=== PATIENT | female | born 1995 | race Caucasian/White ===

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

== ENCOUNTER 2019-06-22 05:20 | Inpatient (IN) ==
[2019-06-22] MEDS ORDERED: REGLAN PO ONE (05:24)
[2019-06-22] MEDS ORDERED: PEPCID PO ONE (05:24)
[2019-06-22] MEDS ORDERED: CLINDAMYCIN 900 MG/D5W 900 MG/50 ML IVPB IV ONE (05:39)
[2019-06-22 05:53] LABS: URINE SOURCE VOIDED
--- NOTE | 2019-06-22 05:58 | HISTORY AND PHYSICAL ---
HISTORY OF PRESENT ILLNESS: Ms. Gottlieb is a 24-year-old G3, P2, 0-0-2, who presents to Labor and Delivery for scheduled primary delivery at 38 weeks and 1 day secondary to gestational diabetes type 2 and macrosomia. The patient presents with good movement. Denies contractions, leakage of fluid or vaginal bleeding. PAST MEDICAL HISTORY: Includes seizure disorder, depression, anxiety, chronic urinary tract infection, and carrier of alpha-1 antitrypsin deficiency. CURRENT MEDICATIONS: 1. vitamins. 2. Keppra 500 mg b.i.d. 3. Effexor. 4. Macrobid. 5. Glyburide 1.25 mg at bedtime. INSURANCE VERIFIER HISTORY: Patient diagnosed with Chlamydia in current treated on 06/09/2019. Menarche at age 13. OB HISTORY: G3, P2, 0-0-2. Two prior full-term vaginal delivery. Both pregnancies baby weighed over 9 pounds. Current : Baby measuring 9 pounds 5 ounces at 35 weeks. Estimated weight is greater than 4500 g. FAMILY HISTORY: The patient admits to a history of congenital heart defects. SURGICAL HISTORY: None. ALLERGIES: Penicillin anaphylaxis, latex swelling. SOCIAL HISTORY: Denies tobacco, alcohol, or drug use. PHYSICAL EXAMINATION: VITAL SIGNS: Blood pressure 127/72, pulse rate 105, height 5 feet 9 inches, weight 314 pounds, and body mass index 46.3 kg/m2. GENERAL: No acute distress. Alert, awake, and oriented x3. CARDIOVASCULAR: Regular rate and rhythm. RESPIRATORY: Clear to auscultation bilaterally. ABDOMEN: Gravid. Nontender to palpation. Soft. EXTREMITIES: Negative calf tenderness. Electronic monitor by Doppler 140 beats per minute. ASSESSMENT: Ms. Gottlieb is a 24-year-old, G3, P2, 0-0-2 at 38 weeks and 1 day, who presents to Labor and Delivery for scheduled primary delivery secondary to poorly- controlled gestational diabetes and complicated by macrosomia. PLAN: 1. Admit to Labor and Delivery for a primary delivery. 2. Continue with monitoring assessment prior to procedure, and Doppler post spinal procedure. 3. IV antibiotics for prophylaxis. 4. Patient reports history of hemorrhage and blood transfusion with prior deliveries. The patient was typed and crossed for 2 units of packed red blood cells, and placed on hold. 5. Patient counseled on risk of bleeding, infection, injury to surrounding organs, not limited to bowel, bladder, ureter, or blood vessels. The patient also counseled on the risks to the fetus, not limited to shoulder dystocia potentially causing permanent nerve damage. The patient understands risks and agrees to procedure. 6. We will continue Effexor secondary to history of depression. The patient understands risk of depression. We will monitor closely. 7. Will continue Keppra p.o. b.i.d. for seizure prevention. 8. Pediatrics will be informed of patient's carrier status of alpha-1 antitrypsin deficiency and monitor appropriately. [facility] CENTERAlexia
[2019-06-22 06:00] LABS: BASO# 0.04 X1000 (0.0-0.2); BASO% 0.4 % (0.0-0.8); EOS# 0.12 X1000 (0.0-0.7); EOS% 1.1 % (0.0-10.0); HEMOGLOBIN 9.8 g/dL (12.0-16.0); IMM GRAN# 0.09 X1000 (0.0-0.04); IMM GRAN% 0.8 % (0.0-0.5); LYMPH# 2.35 X1000 (1.2-3.4); LYMPH% 20.8 % (20.5-51.1); MCH 25.6 PG (27-31); MCHC 31.6 g/dL (33-37); MCV 80.9 FL (81-99); MONO# 0.94 X1000 (0.11-0.59); MONO% 8.3 % (1.7-9.3); MPV 10.1 FL (7.4-10.4); NEUT# 7.74 X1000 (1.4-6.5); NEUT% 68.6 % (42.2-75.2); PLT 244 X1000 (130-400); RBC 3.83 XMIL (4.2-5.4); RDW 15.9 % (11.5-14.5); WBC 11.28 X1000 (4.8-10.8)
[2019-06-22] MEDS: LR 1,000 ML IV SCH ×2 (06:02→06:28)
[2019-06-22 06:06] LABS: BILIRUBIN URINE NEGATIVE (NEGATIVE); BLOOD URINE 1+ (NEGATIVE); CLARITY CLEAR (CLEAR); COLOR YELLOW; GLUCOSE URINE NEGATIVE (NEGATIVE); KETONE URINE 1+(Small) mg/dL (NEGATIVE); LEUKOCYTES URINE 2+ (NEGATIVE); NITRITE URINE POSITIVE (NEGATIVE); PROTEIN URINE 2+(100 mg/dL) mg/dL (NEGATIVE); SP GRAVITY URINE 1.015; UROBILINOGEN URINE 1 mg/dL
[2019-06-22] MEDS ORDERED: BICITRA PO ONE (06:18)
[2019-06-22 06:26] LABS: UR AMPHETAMINES QUAL NONE DETECTED (NONE DETECT); UR BARBITUATES QUAL NONE DETECTED (NONE DETECT); UR BENZODIAZEPIN QUAL NONE DETECTED (NONE DETECT); UR CANNABINOIDS QUAL NONE DETECTED (NONE DETECT); UR COCAINE QUAL NONE DETECTED (NONE DETECT); UR METHADONE QUAL NONE DETECTED (NONE DETECT); UR METHAMPHETAMINE QUAL NONE DETECTED (NONE DETECT); UR OPIATES QUAL NONE DETECTED (NONE DETECT); UR OXYCODONE QUAL NONE DETECTED (NONE DETECT); UR PCP QUAL NONE DETECTED (NONE DETECT); UR PROPOXYPHENE QUAL NONE DETECTED (NONE DETECT); UR TCA QUAL NONE DETECTED (NONE DETECT)
[2019-06-22] MEDS: GENTAMICIN 100 MG/NS 100 MG/100 ML IVPB IV SCH ×2 (06:40→06:41)
[2019-06-22] MEDS ORDERED: DURAMORPH ONE (06:58)
[2019-06-22] MEDS ORDERED: DECADRON ONE (06:59)
[2019-06-22] MEDS ORDERED: ZOFRAN ONE (06:59)
[2019-06-22] MEDS ORDERED: PITOCIN ONE ×3 (07:05→08:14)
[2019-06-22] MEDS ORDERED: FENTANYL ONE (07:05)
[2019-06-22] MEDS ORDERED: ROBINUL ONE (07:06)
[2019-06-22] MEDS ORDERED: METHERGINE ONE (07:20)
[2019-06-22] MEDS ORDERED: HEMABATE ONE (07:20)
[2019-06-22] MEDS ORDERED: SODIUM CHLORIDE 0.9% 10 ML ONE (08:02)
[2019-06-22] MEDS ORDERED: EPHEDRINE ONE (08:03)
[2019-06-22] MEDS ORDERED: CALCIUM CHLORIDE SYRINGE ONE ×2 (08:07→08:11)
[2019-06-22] MEDS ORDERED: SODIUM CHLORIDE 0.9% 20 ML ONE (08:12)
[2019-06-22] MEDS ORDERED: ZOFRAN IV PRN ×2 (09:00)
[2019-06-22] MEDS ORDERED: ZOFRAN ODT PO PRN (09:00)
[2019-06-22] MEDS ORDERED: NARCAN INJ PRN (09:00)
[2019-06-22] MEDS: BENADRYL IV PRN ×2 (09:42→21:34)
[2019-06-22] MEDS ORDERED: PHENERGAN IM PRN (10:15)
[2019-06-22] MEDS ORDERED: M-M-R II VACCINE SUBQ ONE (10:15)
[2019-06-22] MEDS ORDERED: ATARAX PO PRN (10:15)
[2019-06-22] MEDS ORDERED: DEMEROL PO PRN ×2 (10:15)
[2019-06-22] MEDS ORDERED: AMBIEN PO PRN (10:15)
[2019-06-22] MEDS ORDERED: DEMEROL IM PRN (10:15)
[2019-06-22] MEDS ORDERED: PITOCIN IM PRN (10:15)
[2019-06-22] MEDS ORDERED: HYDROXYZINE IM PRN (10:15)
[2019-06-22] MEDS ORDERED: BOOSTRIX VACCINE IM ONE (10:15)
[2019-06-22] MEDS ORDERED: PITOCIN 10 UNITS/NS 1,000 ML IV SCH (10:15)
[2019-06-22] MEDS ORDERED: DULCOLAX PR PRN (10:15)
[2019-06-22] MEDS ORDERED: PITOCIN 20 UNITS/NS 20 UNITS/1,000 ML IV.SOLN IV ONE (10:15)
[2019-06-22] MEDS: MYLICON PO SCH ×3 (12:09→21:07)
[2019-06-22] MEDS: OFIRMEV 1000 MG/ISOTONIC SOLN IV SCH ×3 (12:10→23:56)
[2019-06-22] MEDS ORDERED: GLUCOPHAGE PO SCH (21:00)
[2019-06-22] MEDS: KEPPRA PO SCH (21:05)
[2019-06-22] MEDS: PERICOLACE PO SCH (21:05)
[2019-06-22] MEDS: MYLICON PO PRN (21:07)
[2019-06-23] MEDS: BENADRYL IV PRN (04:42)
[2019-06-23] MEDS: OFIRMEV 1000 MG/ISOTONIC SOLN IV SCH (06:05)
[2019-06-23 06:28] LABS: BASO# 0.03 X1000 (0.0-0.2); BASO% 0.2 % (0.0-0.8); EOS# 0.06 X1000 (0.0-0.7); EOS% 0.5 % (0.0-10.0); HEMATOCRIT 25.7 % (37.0-47.0); HEMOGLOBIN 7.8 g/dL (12.0-16.0); IMM GRAN# 0.07 X1000 (0.0-0.04); IMM GRAN% 0.6 % (0.0-0.5); LYMPH# 1.87 X1000 (1.2-3.4); MCH 24.9 PG (27-31); MCHC 30.4 g/dL (33-37); MCV 82.1 FL (81-99); MONO# 1.37 X1000 (0.11-0.59); MPV 10.2 FL (7.4-10.4); NEUT# 9.08 X1000 (1.4-6.5); NEUT% 72.7 % (42.2-75.2); PLT 157 X1000 (130-400); RBC 3.13 XMIL (4.2-5.4); RDW 15.8 % (11.5-14.5); WBC 12.48 X1000 (4.8-10.8)
--- NOTE | 2019-06-23 07:14 | OPERATIVE NOTE ---
PROCEDURE DATE: 06/22/2019 SURGEON: Sydni Pizano MD CONFIGURATION RELEASE MANAGER: Dr. Claduy Bolaños PREOPERATIVE DIAGNOSES: 1. Intrauterine at 38 weeks and 1 day. 2. Poorly controlled gestational diabetes type 2. 3. macrosomia greater than 4500 g. POSTOPERATIVE DIAGNOSES: 1. Intrauterine at 38 weeks and 1 day. 2. Poorly controlled gestational diabetes type 2. 3. macrosomia greater than 4500 g. PROCEDURE PERFORMED: Primary low-transverse delivery, . ANESTHESIA: Spinal. ESTIMATED BLOOD LOSS: 900 mL. FINDINGS: Viable male , weighing 11 pounds 3 ounces. Normal-appearing uterus, ovaries, and fallopian tubes bilaterally. COMPLICATIONS: None. SURGICAL RISKS: The patient was informed of the risks and benefits of the procedure. Risks included, but were not limited to bleeding, infection, injury to internal organs and possible hysterectomy. The patient expressed understanding of the risks involved. All questions were answered, and the patient consented to procedure. DESCRIPTION OF PROCEDURE: Patient was taken to the operating room where a time-out was performed to confirm correct patient and correct procedure. Spinal anesthesia was adequately established, and prophylactic intravenous antibiotics were administered. The patient was then placed in a dorsal supine position with a left tilt of the hips. The patient was then prepped and draped in the usual sterile fashion for a Pfannenstiel skin incision. An incision was made in the skin with a surgical scalpel, and sharp dissection was carried out over subsequent layers of tissue, including the fascia followed by the Bovie electrocautery for hemostasis. The fascia was incised at the midline, and the fascial incision was extended bilaterally using the Bovie electrocautery. The inferior edge of the fascial incision was grasped with Mike clamps, tented up and the underlying rectus muscle was dissected off bluntly with the Bovie electrocautery. Attention was then turned to the superior edge which was grasped with Mike clamps, tented up, and the underlying rectus muscles were dissected off using the Bovie electrocautery. The rectus muscle was then divided at the midline and the peritoneum was identified, tented up at its upper margin taking care to avoid the bladder, and then entered bluntly. The peritoneal incision was extended superiorly and inferiorly using the Bovie electrocautery with good visualization of the bladder. The bladder blade was inserted, and the vesical peritoneum was identified. It was grasped with smooth pickups and cut laterally to both sides using the Metzenbaum scissors. A bladder flap was then created using blunt and sharp dissection with the Metzenbaum scissors. The bladder blade was reinserted, and a transverse incision was made in the lower uterine segment using the scalpel. The uterine incision was extended bilaterally using blunt dissection. The amniotic sac was entered, and the amniotic fluid was noted to be clear. The surgeon's hand was placed into the uterine cavity. The head was identified, elevated into the abdomen, and delivered through the uterine incision with the assistance of fundal pressure. The was examined for nuchal cord. No nuchal cord was identified. The infant was then delivered with traction and the assistance of fundal pressure. The 's oral and nasal passages were bulb suctioned. On delivery, the cord was clamped and cut. The infant was then passed off the table to the endband sizer staff for further care. Cord blood was obtained for analysis and routine blood testing. The placenta was manually extracted intact with a 3 vessel cord. Oxytocin was administered by IV infusion to enhance uterine contractions. The uterus was exteriorized, and cleared of all clots and remaining products of conception. The uterine incision was reapproximated using 1-0 Monocryl in a running locked fashion. Non-hemostatic areas were reinforced with 1-0 Monocryl in a [id number] stitch. Good hemostasis was confirmed. The uterus was replaced into the abdomen. The pericolic gutters were cleared of all clots. Surgicel was applied to the lower uterine segment to reinforce hemostasis. The fascia was reapproximated using 0 Vicryl in a running nonlocking fashion. The subcutaneous fat/tissue was reapproximated using 2-0 plain gut in a running nonlocking fashion. The skin was reapproximated using 4-0 Monocryl on a Eric stitch in a running subcuticular fashion. All needle, sponge, and instrument counts were noted to be correct x2 at the end of the procedure. The patient tolerated the procedure well. And was transferred to the recovery room in stable condition.
[2019-06-23] MEDS ORDERED: LR 1,000 ML IV SCH (10:15)
[2019-06-23] MEDS: MOTRIN PO PRN ×2 (11:15→20:44)
[2019-06-23] MEDS: PRECARE PO SCH (11:16)
[2019-06-23] MEDS: MYLICON PO SCH ×3 (11:16→20:44)
[2019-06-23] MEDS: EFFEXOR PO SCH (11:42)
[2019-06-23] MEDS: KEPPRA PO SCH ×2 (11:43→23:12)
--- NOTE | 2019-06-23 15:20 | OB/GYN PROGRESS NOTE ---
Progress Note OB - . Patient Problems: Current Active Problems Problem Status Onset S/P primary low transverse Acute macrosomia Acute GDM, class A2 Acute Class 3 severe obesity due to excess calories in adult Acute OB Progress Note: Vital Signs - 24 hr 06/22/19 15:30 06/22/19 15:56 06/22/19 16:30 Temperature 99 F 100 F H Pulse Rate 97 H 96 H Respiratory Rate 20 20 Blood Pressure 119/72 128/56 O2 Sat by Pulse Oximetry 96 97 95 06/22/19 17:37 06/22/19 20:00 06/23/19 04:51 Temperature 98.2 F 97.5 F L 97.8 F Pulse Rate 106 H 97 H 80 Respiratory Rate 20 18 18 Blood Pressure 116/55 119/61 107/57 O2 Sat by Pulse Oximetry 97 95 100 06/23/19 08:30 06/23/19 13:00 Temperature 96.9 F L 96.9 F L Pulse Rate 97 H 103 H Respiratory Rate 20 20 Blood Pressure 121/61 124/80 O2 Sat by Pulse Oximetry 97 98 Laboratory Results - last 24 hr 06/22/19 06/23/19 06/23/19 21:38 03:44 05:56 WBC 12.48 H RBC 3.13 L Hgb 7.8 L D Hct 25.7 L MCV 82.1 MCH 24.9 L MCHC 30.4 L RDW Std Deviation 15.8 H Plt Count 157 D MPV 10.2 Immature Gran % (Auto) 0.6 H Neut % (Auto) 72.7 Lymph % (Auto) 15.0 L Carson % (Auto) 11.0 H Eos % (Auto) 0.5 Baso % (Auto) 0.2 Immature Gran # (Auto) 0.07 H Neut # (Auto) 9.08 H Lymph # (Auto) 1.87 Carson # (Auto) 1.37 H Eos # (Auto) 0.06 Baso # (Auto) 0.03 POC Glucose 84 84 06/23/19 10:36 WBC RBC Hgb Hct MCV MCH MCHC RDW Std Deviation Plt Count MPV Immature Gran % (Auto) Neut % (Auto) Lymph % (Auto) Carson % (Auto) Eos % (Auto) Baso % (Auto) Immature Gran # (Auto) Neut # (Auto) Lymph # (Auto) Carson # (Auto) Eos # (Auto) Baso # (Auto) POC Glucose 86 S: Patient without complaints. Denied fever, chills, N/V, SOB, or chest pain. Tolerating PO. No flatus yet. Pain controlled. Voiding without difficulty. Lochia decreasing. Breast-feeding without difficulty. Considering Nexplanon for contraception. O: Gen: NAD CV: RRR Pulm: CTAB; no rhonchi, wheezing, or rales Abd: soft, non TTP, non distended; active bowel sounds; fundus firm and below umbilicus Incision: clear, dry, intact with steri-strips over and blank pad over that Ext: no LE TTP Labs: reviewed A&P: 24yo s/p primary CD for macrosomia and GDMA2 at 38w1d, 1. POD#1 -No concerns 2. Anemia -EBL 900cc; VS wnl and stable -PNV, Fe, and Vit C ordered 3. Seizure d/o -Cont. Keppra 4. Anxiety/depression -Cont. Effexor -Appreciate SW consultation 5. Alpha 1 anti-trypsin deficiency carrier -CMP ordered to assess liver -Lungs unremarkable on exam 6. Rubella NON-immune -MMR booster 7. GDMA2 -D/C Metformin and glucose checks -Pt denied DM prior to -Recommend 2h GTT approx 6 weeks
[2019-06-23 16:11] LABS: AGAP 12; ALBUMIN 2.8 g/dL (3.5-5.0); ALKALINE PHOSPHATASE 123 U/L (32-104); BUN 9 mg/dL (8-22); CALCIUM 8.7 mg/dL (8.8-10.2); CHLORIDE 103 mmol/L (98-107); COSMO 278; CREATININE 0.6 mg/dL (0.5-0.9); ESTIMATED GFR > 60; GLUCOSE 92 mg/dL (70-104); GOT 15 U/L (10-30); GPT 13 U/L (10-36); POTASSIUM 4.1 mmol/L (3.5-5.1); SODIUM 140 mmol/L (136-145); TCO2 25 mmol/L (25-35); TOTAL PROTEIN 5.8 g/dL (6.3-8.3)
[2019-06-23] MEDS: PERICOLACE PO SCH (20:44)
[2019-06-23] MEDS: FERROUS SULFATE PO SCH (20:44)
[2019-06-23] MEDS: NORCO-5 PO PRN ×2 (20:45→23:45)
[2019-06-23] MEDS: VITAMIN C PO SCH (20:45)
[2019-06-23] MEDS ORDERED: ZOFRAN ODT PO PRN (23:01)
[2019-06-23] MEDS ORDERED: PHENERGAN PO PRN (23:01)
[2019-06-24] MEDS: MOTRIN PO PRN ×2 (06:06→16:35)
[2019-06-24] MEDS: NORCO-5 PO PRN ×3 (06:06→21:52)
--- NOTE | 2019-06-24 09:01 | OB/GYN PROGRESS NOTE ---
Progress Note OB - . Patient Problems: Current Active Problems Problem Status Onset S/P primary low transverse Acute macrosomia Acute GDM, class A2 Acute Class 3 severe obesity due to excess calories in adult Acute OB Progress Note: Vital Signs - 24 hr 06/23/19 13:00 06/23/19 16:00 06/23/19 20:30 Temperature 96.9 F L 96.9 F L Pulse Rate 103 H 94 H Respiratory Rate 20 20 Blood Pressure 124/80 121/80 O2 Sat by Pulse Oximetry 98 98 98 06/23/19 20:50 06/24/19 01:16 06/24/19 03:15 Temperature 97.6 F 97.8 F Pulse Rate 95 H 91 H 89 Respiratory Rate 20 18 18 Blood Pressure 130/82 123/70 144/80 O2 Sat by Pulse Oximetry 100 95 97 06/24/19 04:00 06/24/19 08:00 Temperature 97.6 F 96.5 F L Pulse Rate 89 86 Respiratory Rate 18 20 Blood Pressure 144/80 118/81 O2 Sat by Pulse Oximetry 97 99 Laboratory Results - last 24 hr 06/23/19 06/23/19 06/23/19 10:36 15:44 23:11 Sodium 140 Potassium 4.1 Chloride 103 Carbon Dioxide 25 Anion Gap 12 BUN 9 Creatinine 0.6 Estimated GFR/1.73 m2 > 60 BUN/Creatinine Ratio 15 Glucose 92 POC Glucose 86 69 L Calculated Osmolality 278 Calcium 8.7 L Total Bilirubin 0.20 AST 15 ALT 13 Alkaline Phosphatase 123 H Total Protein 5.8 L Albumin 2.8 L Globulin 3.0 Albumin/Globulin Ratio 1.0 06/23/19 23:45 Sodium Potassium Chloride Carbon Dioxide Anion Gap BUN Creatinine Estimated GFR/1.73 m2 BUN/Creatinine Ratio Glucose POC Glucose 78 Calculated Osmolality Calcium Total Bilirubin AST ALT Alkaline Phosphatase Total Protein Albumin Globulin Albumin/Globulin Ratio S: Patient without complaints. Denied fever, chills, N/V, SOB, or chest pain. Tolerating PO. No flatus yet. Pain controlled. Voiding without difficulty. Lochia decreasing. Breast-feeding without difficulty. Considering Nexplanon for contraception. O: Gen: NAD CV: RRR Pulm: CTAB; no rhonchi, wheezing, or rales Abd: soft, some minimal epigastric TTP, non distended; obese; active bowel sounds; fundus firm and below umbilicus Incision: clear, dry, intact with steri-strips over and blank pad over that Ext: no LE TTP Labs: reviewed A&P: 24yo s/p primary CD for macrosomia and GDMA2 at 38w1d, 1. POD#2 -No concerns; pt meeting milestones -Cont. to ambulate as tolerated 2. Anemia -EBL 900cc; VS wnl and stable -Continue PNV, Fe, and Vit C 3. Seizure d/o -Cont. Keppra 4. Anxiety/depression -Cont. Effexor -Appreciate SW consultation 5. Alpha 1 anti-trypsin deficiency carrier -CMP unremarkable -Lungs unremarkable on exam 6. Rubella NON-immune -MMR booster 7. GDMA2 -D/C Metformin and glucose checks -Pt denied DM prior to -Recommend 2h GTT approx 6 weeks
[2019-06-24] MEDS: KEPPRA PO SCH ×2 (09:45→22:01)
[2019-06-24] MEDS: PRECARE PO SCH (09:51)
[2019-06-24] MEDS: FERROUS SULFATE PO SCH ×2 (09:52→21:52)
[2019-06-24] MEDS: VITAMIN C PO SCH ×2 (09:53→21:52)
[2019-06-24] MEDS: MYLICON PO SCH ×4 (09:56→21:52)
[2019-06-24] MEDS: EFFEXOR PO SCH (09:57)
[2019-06-24] MEDS: PERICOLACE PO SCH (21:52)
[2019-06-25] MEDS: MYLICON PO PRN ×3 (04:21→10:32)
[2019-06-25] MEDS: NORCO-5 PO PRN ×2 (06:31→18:50)
[2019-06-25] MEDS: MOTRIN PO PRN ×2 (06:31→21:31)
[2019-06-25] MEDS: FERROUS SULFATE PO SCH ×2 (10:31→21:31)
[2019-06-25] MEDS: MYLICON PO SCH ×4 (10:32→21:29)
[2019-06-25] MEDS: VITAMIN C PO SCH ×2 (10:33→21:31)
[2019-06-25] MEDS: KEPPRA PO SCH ×2 (10:33→21:29)
[2019-06-25] MEDS: PRECARE PO SCH (10:33)
[2019-06-25] MEDS: EFFEXOR PO SCH (10:35)
[2019-06-25] MEDS ORDERED: ZOVIRAX OINTMENT TOP ONE (19:19)
[2019-06-25] MEDS: PERICOLACE PO SCH (21:31)
[2019-06-25] MEDS: ZOVIRAX OINTMENT TOP SCH (21:32)
--- NOTE | 2019-06-26 07:49 | OB/GYN PROGRESS NOTE ---
Progress Note OB - . Patient Problems: Current Active Problems Problem Status Onset S/P primary low transverse Acute macrosomia Acute GDM, class A2 Acute Class 3 severe obesity due to excess calories in adult Acute OB Progress Note: Vital Signs - 24 hr 06/25/19 13:00 06/25/19 16:00 06/25/19 21:40 Temperature 97.8 F 96.5 F L 97.4 F L Pulse Rate 96 H 76 93 H Respiratory Rate 20 20 18 Blood Pressure 132/84 140/76 136/83 O2 Sat by Pulse Oximetry 98 95 97 06/26/19 05:25 Temperature 96.8 F L Pulse Rate 95 H Respiratory Rate 16 Blood Pressure 130/76 O2 Sat by Pulse Oximetry 99 Laboratory Results - last 24 hr 06/22/19 05:35 Crossmatch See Detail S: Patient without complaints. Denied fever, chills, N/V, SOB, or chest pain. Tolerating PO. Flatus present. Pain controlled. Voiding without difficulty. Lochia decreasing. Breast-feeding without difficulty. Considering Nexplanon for contraception. O: Gen: NAD CV: RRR Pulm: CTAB; no rhonchi, wheezing, or rales Abd: soft, some minimal epigastric TTP, non distended; obese; active bowel sounds; fundus firm and below umbilicus Incision: clear, dry, intact with steri-strips over and blank pad over that Ext: no LE TTP Labs: no new labs A&P: 24yo s/p primary CD for macrosomia and GDMA2 at 38w1d, 1. POD#4 -No concerns; pt met milestones -D/C home today and f/u in about [address] Pizano -Post-op precautions d/w patient and when to call clinic 2. Anemia -EBL 900cc; VS wnl and stable -Continue PNV, Fe, and Vit C 3. Seizure d/o -Cont. Keppra -Recommend to f/u with Neurologist 4. Anxiety/depression -Mood stable and appropriate; patient bonding with baby and -Cont. Effexor -Appreciate SW consultation -Recommend to f/u with mental clinic 5. Alpha 1 anti-trypsin deficiency carrier -CMP unremarkable -Lungs unremarkable on exam 6. Rubella NON-immune -MMR booster 7. GDMA2 -Recommend 2h GTT approx 6 weeks
[2019-06-26 08:07] VITALS: BP 140/78
[2019-06-26] MEDS: ZOVIRAX OINTMENT TOP SCH (10:04)
[2019-06-26] MEDS: FERROUS SULFATE PO SCH (10:05)
[2019-06-26] MEDS: VITAMIN C PO SCH (10:05)
[2019-06-26] MEDS: EFFEXOR PO SCH (10:05)
[2019-06-26] MEDS: PRECARE PO SCH (10:06)
[2019-06-26] MEDS: KEPPRA PO SCH (10:06)
[2019-06-26] MEDS: MOTRIN PO PRN (10:06)
[2019-06-26] MEDS: MYLICON PO SCH ×2 (10:06→10:07)
--- NOTE | 2019-06-27 08:42 | DISCHARGE SUMMARY ---
ADMISSION DATE: 06/22/2019 DISCHARGE DATE: 06/26/2019 DISCHARGE DIAGNOSES: 1. A 24-year-old, G3, P3-0-0-3, status post primary delivery for macrosomia and GDMA 2 at 38 weeks and 1 day. 2. Anemia secondary to acute blood loss (EBL approximately 900 mL)- on vitamin, iron daily, and vitamin C b.i.d. 3. Seizure disorder on Keppra 250 mg b.i.d.- Recommend neurologist followup . 4. History of anxiety and depression, on Effexor. Mood stable upon discharge. Recommend follow up with the outpatient Mental Health Clinic. 5. Alpha 1 antitrypsin deficiency carrier. 6. Rubella nonimmune- MMR booster . 7. GDMA2- Recommend 2 hour glucose tolerance test in approximately 6 weeks . HOSPITAL COURSE: This is a 24-year-old now G3, P3-0-0-3 that was scheduled for a primary delivery due to macrosomia and GDMA2. This is a patient of Dr. Pizano. The patient had a estimated weight of greater than 4500 g. She had a history significant of seizure disorder that was controlled with Keppra. The patient had a history of anxiety and depression, which was controlled with Effexor. The patient was also a carrier of alpha 1 antitrypsin deficiency. During her current the patient had GDMA2, in which she was taking glyburide. The patient had a primary section with Dr. Pizano on 06/22/2019. The patient delivered a live male infant, weighing 11 pounds and 3 ounces. Her EBL was approximately 900 mL. Please see operative report for further details. Postoperative course was complete without complications. The patient was started on iron and vitamin C due to anemia secondary to acute blood loss. Her Keppra was also continued for her seizure disorder, and Effexor for anxiety and depression. Social Work consultation was carried out. The patient was also recommended MMR booster given her rubella non-immune status. The patient was . The patient had a concern of her Keppra and/or Effexor passing through the breastmilk. The risks and benefits of Keppra and Effexor and the amount passed to the baby via the breast milk was provided to the patient. After discussion, patient agreed to continue . Recommendation was given to the patient to follow up with her neurologist for her seizure disorder, for optimization of her seizure control, and possible titration of her Keppra. The patient was also recommended to follow up with her mental health clinic for possible titration of her Effexor or switch to an SSRI, considering patient is . The patient desires Nexplanon for control. The patient was discharged on postop day #4, postop precautions was given and when to call clinic. Recommendation was given to follow up with Dr. Pizano in approximately 2 weeks for postoperative followup. LABORATORY: Pre-delivery hemoglobin and hematocrit 9.8/31, post 7.8/25.7, platelet count 157,000. Sodium 140, potassium 4.1, chloride 103, bicarb 25, BUN 9, creatinine 0.6, total albumin 0.2, AST 15, ALT 13, Alkaline phosphatase 123. UDS negative. RPR nonreactive. DISCHARGE DIET: Regular. DISCHARGE DISPOSITION: Stable. DISCHARGE MEDICATIONS: 1. [place] 5/325 mg 1 tab q.6 hours p.r.n., dispensed #30. 2. Motrin 800 mg 1 tab p.o. t.i.d. 3. Colace 100 mg b.i.d. 4. Iron 325 mg daily. 5. Ascorbic acid 500 mg b.i.d. 6. Patient to continue taking her Effexor, Keppra, and vitamins. DISCHARGE INSTRUCTIONS: The patient was given discharge instructions, postop precautions and recommended to follow up with her neurologist and Mental Health Clinic. [facility]
== END 2019-06-26 12:05 | disposition home or self-care (01) | DRG 787 ==
LOC: P.LD 05:20
PROVIDERS: ADMIT Obstetrics & Gynecology; ATTEND Obstetrics & Gynecology